=== PATIENT | male | born 1990 | race Caucasian/White ===

== ENCOUNTER 2017-04-23 17:41 | Inpatient (IN) | payer SELFPAY ==
[~2017-04-23] VITALS: Ht 172.7 cm; Wt 90.8 kg
[2017-04-23] MEDS ORDERED: SODIUM CHLORIDE 0.9% 1,000 ML IV ONE (19:34)
[2017-04-23] MEDS ORDERED: LORAZEPAM 2MG/ML CPJ IV ONE (19:45)
[2017-04-23] MEDS ORDERED: CHLORDIAZEPOXIDE 25MG CAPSULE PO ONE (19:45)
[2017-04-23 20:01] LABS: HEMATOCRIT. 24.5 % (42.0-52.0); HEMOGLOBIN. 7.5 g/dL (14.0-18.0); MEAN CORPUSCULAR HEMOGLOBIN 20.8 pg (28.0-32.0); MEAN PLATELET VOLUME 8.5 fl (7.4-10.4); PLATELET 94 x1000/uL (130-400); RED BLOOD CELL COUNT 3.61 mill/uL (4.7-6.1); RED CELL DISTRIBUTION WIDTH 21.2 % (11.6-14.6)
[2017-04-23 20:05] LABS: CHLORIDE 100 mEq/L (98-107)
[2017-04-23 20:09] LABS: CARBON DIOXIDE 23 mEq/L (21-32)
[2017-04-23 20:17] LABS: ETHANOL BLOOD 382 mg/dL
[2017-04-23 20:24] LABS: PLATELET ESTIMATE DECREASED
[2017-04-23] MEDS ORDERED: SODIUM CHLORIDE 0.9% 1,000 ML IV SCH (21:22)
[2017-04-23 22:01] LABS: *AMPHETAMINES SCREEN URINE NEGATIVE (NEGATIVE); *BARBITURATES SCREEN URINE NEGATIVE (NEGATIVE); *BENZODIAZEPINES SCREEN URINE NEGATIVE (NEGATIVE); *COCAINE SCREEN URINE NEGATIVE (NEGATIVE); CANNABINOID URINE SCREEN NEGATIVE (NEGATIVE); METHADONE URINE SCREEN NEGATIVE (NEGATIVE); OPIATES URINE SCREEN NEGATIVE (NEGATIVE); PHENCYCLIDINE URINE SCREEN NEGATIVE (NEGATIVE)
[2017-04-23] MEDS ORDERED: CLONIDINE 0.1MG TABLET PO PRN (23:30)
[2017-04-23] MEDS ORDERED: IPRATROPIUM/ALBUTEROL 0.5-3(2.5)MG/3ML NEB INH PRN (23:30)
[2017-04-23] MEDS ORDERED: ONDANSETRON HCL 4MG/2ML VIAL IV PRN (23:30)
[2017-04-23] MEDS ORDERED: MAGNESIUM/ALUMINUM HYDROXIDE/SIMETHICONE 30ML UDC PO PRN (23:30)
[2017-04-24] VITALS (14 sets, daily range): BP systolic 101–132; BP diastolic 42–64
[2017-04-24] MEDS: LORAZEPAM 0.5MG TABLET PO PRN ×4 (03:03→22:32)
[2017-04-24] MEDS ORDERED: PANTOPRAZOLE SODIUM 40 MG/VIAL IV ONE (03:52)
[2017-04-24] MEDS ORDERED: MVI, ADULT NO.1 10 ML, THIAMINE HCL 100 MG in SODIUM CHLORIDE 0.9% 1,000 ML IV NR ×3 (04:00)
[2017-04-24] MEDS ORDERED: PANTOPRAZOLE 80 MG in SODIUM CHLORIDE 0.9% 100 ML IV SCH ×4 (04:00)
[2017-04-24] MEDS: CHLORDIAZEPOXIDE 25MG CAPSULE PO SCH ×3 (06:03→21:14)
[2017-04-24] MEDS: FOLIC ACID 1MG TABLET PO SCH (08:05)
[2017-04-24] MEDS: THIAMINE HCL 100MG TABLET PO SCH (08:05)
[2017-04-24] MEDS: MULTIVITAMINS,THER W-MINERALS TABLET PO SCH (08:05)
[2017-04-24 09:47] LABS: BASOPHILS % 0.8 % (0.0-2.0); EOSINOPHILS % 0.2 % (0.0-5.0); LYMPHOCYTES % 17.5 % (20.0-50.0); MEAN CORPUSCULAR HEMOGLOBIN 21.1 pg (28.0-32.0); MEAN CORPUSCULAR VOLUME 68.7 fL (80.0-94.0); MEAN PLATELET VOLUME 8.4 fl (7.4-10.4); MONOCYTES % 5.5 % (2.0-8.0); PLATELET 67 x1000/uL (130-400); RED BLOOD CELL COUNT 3.03 mill/uL (4.7-6.1); RED CELL DISTRIBUTION WIDTH 20.6 % (11.6-14.6)
[2017-04-24 09:58] LABS: CARBON DIOXIDE 20 mEq/L (21-32); CHLORIDE 99 mEq/L (98-107); CREATINE KINASE 425 IU/L (39-308); CREATINE KINASE MB FRACTION 3.8 ng/mL (0.5-3.6); HDL CHOLESTEROL 48 mg/dL (40-59); LDL CHOLESTEROL 106 mg/dL (5-100); TROPONIN I < 0.02 ng/mL (0.00-0.04)
[2017-04-24 10:20] LABS: HEMATOCRIT. 20.8 % (42.0-52.0); HEMOGLOBIN. 6.4 g/dL (14.0-18.0)
[2017-04-24] MEDS: SODIUM CHLORIDE 0.9% 1,000 ML IV SCH (11:06)
[2017-04-24] MEDS: PANTOPRAZOLE 80 MG in SODIUM CHLORIDE 0.9% 100 ML IV SCH ×2 (15:33→22:23)
[2017-04-24 19:56] LABS: HEMATOCRIT 25.1 % (42.0-52.0); HEMOGLOBIN 7.9 g/dL (14.0-18.0)
[2017-04-24 20:10] LABS: AMMONIA 71 uMol/L (<32)
[2017-04-24 20:15] LABS: CREATINE KINASE 415 IU/L (39-308); CREATINE KINASE MB FRACTION 2.9 ng/mL (0.5-3.6); TROPONIN I < 0.02 ng/mL (0.00-0.04)
[2017-04-24 20:37] LABS: FOLIC ACID (FOLATE) SERUM 11.7 ng/mL (>5.38)
[2017-04-24] MEDS: ACETAMINOPHEN 325MG TABLET PO PRN (21:14)
[2017-04-24 23:57] LABS: HEMATOCRIT 24.8 % (42.0-52.0); HEMOGLOBIN 7.8 g/dL (14.0-18.0)
[2017-04-25] VITALS (9 sets, daily range): BP systolic 111–140; BP diastolic 44–66
[2017-04-25] MEDS: SODIUM CHLORIDE 0.9% 1,000 ML IV SCH ×2 (00:22→14:37)
[2017-04-25] MEDS: CHLORDIAZEPOXIDE 25MG CAPSULE PO SCH ×3 (05:37→21:34)
[2017-04-25 06:38] LABS: BASOPHILS % 0.8 % (0.0-2.0); EOSINOPHILS % 1.6 % (0.0-5.0); HEMATOCRIT. 25.3 % (42.0-52.0); HEMOGLOBIN. 7.9 g/dL (14.0-18.0); LYMPHOCYTES % 17.4 % (20.0-50.0); MEAN CORPUSCULAR HEMOGLOBIN 22.6 pg (28.0-32.0); MEAN CORPUSCULAR VOLUME 72.2 fL (80.0-94.0); MEAN PLATELET VOLUME 8.7 fl (7.4-10.4); MONOCYTES % 5.9 % (2.0-8.0); NEUTROPHILS % 74.3 % (40.0-76.0)
[2017-04-25 06:54] LABS: PLATELET 50 x1000/uL (130-400)
[2017-04-25 07:22] LABS: CARBON DIOXIDE 23 mEq/L (21-32); CHLORIDE 100 mEq/L (98-107)
[2017-04-25] MEDS: THIAMINE HCL 100MG TABLET PO SCH (08:33)
[2017-04-25] MEDS: FOLIC ACID 1MG TABLET PO SCH (08:33)
[2017-04-25] MEDS: MULTIVITAMINS,THER W-MINERALS TABLET PO SCH (08:33)
[2017-04-25] MEDS: PANTOPRAZOLE SODIUM 40 MG/VIAL IV SCH ×2 (09:18→21:34)
[2017-04-25] MEDS: LACTULOSE 20G/30ML UDC PO SCH ×3 (09:18→21:34)
[2017-04-25] MEDS ORDERED: SODIUM CHLORIDE 0.9% 10ML VIAL ONE (11:05)
[2017-04-25] MEDS ORDERED: SIMETHICONE 40 MG/0.6 ML 30ML ONE (11:05)
[2017-04-25 14:53] LABS: INR 1.2; PROTHROMBIN TIME 12.7 sec (9.4-11.6)
[2017-04-25 18:02] LABS: PLATELET ESTIMATE MARKEDLY DECREASED
[2017-04-25] MEDS ORDERED: MIDAZOLAM HCL 5 MG/5 ML VIAL IV PRN (18:47)
[2017-04-25] MEDS ORDERED: FENTANYL CITRATE/PF 50MCG/ML 2ML VIAL ONE (18:47)
[2017-04-25] MEDS ORDERED: FENTANYL CITRATE/PF 50MCG/ML 2ML VIAL IV PRN (18:47)
[2017-04-25] MEDS ORDERED: MIDAZOLAM HCL 5 MG/5 ML VIAL ONE (18:47)
[2017-04-25] MEDS: ACETAMINOPHEN 325MG TABLET PO PRN (23:36)
[2017-04-25] MEDS: LORAZEPAM 0.5MG TABLET PO PRN (23:36)
[2017-04-26] VITALS (10 sets, daily range): BP systolic 101–138; BP diastolic 49–83
[2017-04-26 00:49] LABS: BASOPHILS % 0.7 % (0.0-2.0); HEMATOCRIT. 23.8 % (42.0-52.0); HEMOGLOBIN. 7.6 g/dL (14.0-18.0); LYMPHOCYTES % 15.7 % (20.0-50.0); MEAN CORPUSCULAR HEMOGLOBIN 22.9 pg (28.0-32.0); MEAN CORPUSCULAR VOLUME 71.9 fL (80.0-94.0); MEAN PLATELET VOLUME 8.2 fl (7.4-10.4); MONOCYTES % 5.8 % (2.0-8.0); NEUTROPHILS % 74.8 % (40.0-76.0); PLATELET 62 x1000/uL (130-400); RED BLOOD CELL COUNT 3.32 mill/uL (4.7-6.1); RED CELL DISTRIBUTION WIDTH 25.1 % (11.6-14.6)
[2017-04-26 00:56] LABS: INR 1.3; PROTHROMBIN TIME 13.4 sec (9.4-11.6)
[2017-04-26] MEDS: SODIUM CHLORIDE 0.9% 1,000 ML IV SCH ×3 (02:30→18:04)
[2017-04-26] MEDS: CHLORDIAZEPOXIDE 25MG CAPSULE PO SCH ×3 (05:45→22:03)
[2017-04-26] MEDS: LORAZEPAM 0.5MG TABLET PO PRN ×5 (05:45→22:04)
[2017-04-26] MEDS: LACTULOSE 20G/30ML UDC PO SCH ×4 (05:45→21:38)
[2017-04-26] MEDS: PANTOPRAZOLE SODIUM 40 MG/VIAL IV SCH ×2 (08:36→22:03)
[2017-04-26] MEDS: FOLIC ACID 1MG TABLET PO SCH (08:37)
[2017-04-26] MEDS: THIAMINE HCL 100MG TABLET PO SCH (08:37)
[2017-04-26] MEDS: MULTIVITAMINS,THER W-MINERALS TABLET PO SCH (08:37)
[2017-04-27] VITALS: BP 103/34
[2017-04-27 02:00] VITALS: BP 115/81
[2017-04-27] MEDS: LORAZEPAM 0.5MG TABLET PO PRN (02:51)
[2017-04-27 04:00] VITALS: BP 117/73
[2017-04-27] MEDS: LACTULOSE 20G/30ML UDC PO SCH (05:36)
[2017-04-27 05:55] VITALS: BP 109/64
[2017-04-27] MEDS: CHLORDIAZEPOXIDE 25MG CAPSULE PO SCH (06:00)
[2017-04-27 06:45] LABS: EOSINOPHILS % 5.2 % (0.0-5.0); HEMATOCRIT. 25.7 % (42.0-52.0); LYMPHOCYTES % 17.6 % (20.0-50.0); MEAN CORPUSCULAR HEMOGLOBIN 22.6 pg (28.0-32.0); MEAN CORPUSCULAR VOLUME 73.1 fL (80.0-94.0); MONOCYTES % 7.6 % (2.0-8.0); NEUTROPHILS % 68.6 % (40.0-76.0); PLATELET 79 x1000/uL (130-400); RED BLOOD CELL COUNT 3.52 mill/uL (4.7-6.1); RED CELL DISTRIBUTION WIDTH 26.7 % (11.6-14.6)
[2017-04-27 07:24] LABS: CARBON DIOXIDE 24 mEq/L (21-32); CHLORIDE 105 mEq/L (98-107)
[2017-04-27] MEDS: FOLIC ACID 1MG TABLET PO SCH (08:43)
[2017-04-27] MEDS: MULTIVITAMINS,THER W-MINERALS TABLET PO SCH (08:43)
[2017-04-27] MEDS: PANTOPRAZOLE SODIUM 40 MG/VIAL IV SCH (08:43)
[2017-04-27] MEDS: THIAMINE HCL 100MG TABLET PO SCH (08:43)
[2017-04-27] MEDS ORDERED: POTASSIUM CHLORIDE 20MEQ TABLET SR PO SCH (09:30)
[2017-04-27 11:27] VITALS: BP 132/90
[2017-04-27] MEDS ORDERED: SIMV10TA2 PO (11:52)
[2017-04-27] MEDS ORDERED: FOLI-43 PO (11:52)
[2017-04-27] MEDS ORDERED: THIA100T72 PO (11:52)
[2017-04-27] MEDS ORDERED: PROT20 PO (11:52)
[2017-04-27] MEDS ORDERED: LEVO500T2 PO (11:54)
[2017-04-27 12:06] VITALS: BP 132/90
== END 2017-04-27 12:10 | disposition home or self-care (01) | DRG 241 ==
LOC: ER 17:45 → 5WST 21:23 → ENRESERV 23:20 → 5EST 04-25 18:30
PROVIDERS: ADMIT Internal Medicine; ATTEND Internal Medicine
PROC: 30233N1 Transfusion of Nonautologous Red Blood Cells into Peripheral Vein, Percutaneous Approach (ICD-10-PCS; 2017-04-24)
PROC: 30233R1 Transfusion of Nonautologous Platelets into Peripheral Vein, Percutaneous Approach (ICD-10-PCS; 2017-04-25)
PROC: 0DJ08ZZ Inspection of Upper Intestinal Tract, Via Natural or Artificial Opening Endoscopic (ICD-10-PCS; principal; 2017-04-25 18:00)
DX: K29.70 Gastritis, unspecified, without bleeding (principal); D69.59 Other secondary thrombocytopenia; K70.9 Alcoholic liver disease, unspecified; K22.10 Ulcer of esophagus without bleeding; K44.9 Diaphragmatic hernia without obstruction or gangrene; F10.239 Alcohol dependence with withdrawal, unspecified; D50.9 Iron deficiency anemia, unspecified; K59.00 Constipation, unspecified; F41.9 Anxiety disorder, unspecified; E80.6 Other disorders of bilirubin metabolism; Z59.0 Homelessness
CPT/HCPCS: 36415; 74000; 76700; 78278; 80048; 80053; 80061; 80076; 80305; 82140; 82248; 82550; 82553; 82607; 82728; 82746; 83540; 83550; 83690; 84443; 84484; 85014; 85018; 85025; 85384; 85610; 85730; 86850; 86900; 86920; 87040; 87076; 93005; 93970; 96361; 96374; 99285; A4216; A9560; C9113; G0482; J2060; J2250; J2405; J3010; J3411; J3490; J7030; J7040; J7050; P9016; P9034